=== PATIENT | female | born 1960 | race Hispanic/Latino ===

== ENCOUNTER 2019-08-01 11:45 | Emergency (ER) | payer OTHER, MEDICARE, MEDICAID ==
[~2019-08-01] VITALS: Ht 149.9 cm; Wt 78.0 kg
[~2019-08-01 11:45] MED LIST: ADVAIR DISK1 INH; ALBUTEROL S2.5 MG/.5 IN; AMOXICILLIN/PO500 MG PO; BACTRIM DS1 TAB OR; CEPHALEXIN500 M1 PO; DUONEB IN; FLU PO; IPRATROPIU0.5 MG/3 M IN; KEFLEX500 MG PO; MECLIZINE25 MG OR; MEDDOSEPAK PO; METHOCARBAMOL500 MG PO; NAPROSYN375 MG PO; NAPROXEN250 MG PO; NO MEDS; PAXIL30 MG PO; PERCOCET 10/31 COMBO PO; PROAIR HFA IN; PROVENTIL0.083 % IN; PROZAC10 MG PO; ROBITUSSIN COLD PO; ROBITUSSIN200 MG/10 PO; TRAZODONE50 MG PO; TYLENOL500 MG OR; ULTRAM50 MG OR; VENTOLIN HFA IN; ZITHROMAX250 MG PO; [UNRECOGNIZED DRUG - OTHER] OR
[2019-08-01] MEDS ORDERED: SYMBICORT1 AE1 IN (12:07)
[2019-08-01 13:25] VITALS: BP 149/74
== END 2019-08-01 13:25 | disposition home or self-care (01) | DRG 563 ==
LOC: ED 11:45
DX: S46.912A Strain of unspecified muscle, fascia and tendon at shoulder and upper arm level, left arm, initial encounter (principal); S76.912A Strain of unspecified muscles, fascia and tendons at thigh level, left thigh, initial encounter; S39.012A Strain of muscle, fascia and tendon of lower back, initial encounter; F17.210 Nicotine dependence, cigarettes, uncomplicated; V89.2XXA Person injured in unspecified motor-vehicle accident, traffic, initial encounter

== ENCOUNTER 2019-10-13 | Observation (INO) | payer MEDICARE ==
[~2019-10-13] MED LIST changes: +SYMBICORT1 AE1 IN
--- NOTE | 2019-10-13 17:30 | NUR ---
PT TO ROOM VIA WC
--- NOTE | 2019-10-13 17:46 | NUR ---
DR ANSARI TO ROOM FOR ASSESSMENT
--- NOTE | 2019-10-13 17:47 | NUR ---
PT TO ROOM VIA WC
--- NOTE | 2019-10-13 18:16 | NUR ---
PT RESTING QUIETLY ON STRETCHER; NO S/S OF DISTRESS NOTED; MONITORING DEVICES IN PLACE; PT DENIES ANY NEEDS AT THIS TIME; WILL CONTINUE TO MONITOR
[2019-10-13 18:48] LABS: HEMATOCRIT 35.4 % (37.0-47.0); HEMOGLOBIN 11.8 g/dl (12.0-16.0); MEAN CELL VOLUME 89.6 fL CALC (80.0-100.0); MEAN CORPUSCULAR HGB 29.9 pG CALC (26.0-32.0); MEAN CORPUSCULAR HGB CONC 33.3 g/L CALC (32.0-36.0); NEUT# 16.11 thou/uL (2.00-7.15); RED BLOOD COUNT 3.95 mill/uL (4.20-5.60); RED CELL DISTRI WIDTH 12.1 % (11.5-15.5)
--- NOTE | 2019-10-13 18:50 | NUR ---
REPORT GIVEN TO ANURADHA SINCLAIR
[2019-10-13 19:12] LABS: ALBUMIN 3.3 g/dL (3.2-5.0); ALKALINE PHOSPHATASE 110 u/l (38-126); BUN 8 mg/dL (7-17); BUN/CREATININE RATIO 20 (12-20 (CALC)); CARBON DIOXIDE 27 mmol/l (22-30); CHLORIDE 102 mmol/l (95-108); CREATININE 0.4 mg/dL (0.5-1.0); GFR > 60 ML/MIN (>=60 (CALC)); GFR FOR AFR.AMER. > 60 ML/MIN (>=60 (CALC)); LIPASE 35 u/l (23-300); SGOT/AST 16 u/l (14-36); SODIUM 138 mmol/l (137-146); TOTAL PROTEIN 6.4 g/dL (6.3-8.2)
[2019-10-13 19:14] LABS: ANION GAP 12 (6-22 (CALC)); BILIRUBIN, TOTAL 0.5 mg/dL (0.0-1.4); POTASSIUM 2.9 mmol/l (3.5-5.1)
[2019-10-13 19:33] LABS: URINE BLOOD DIPSTICK MODERATE (NEGATIVE); URINE GLUCOSE - DIPSTICK NEGATIVE (NEGATIVE); URINE KETONE NEGATIVE (NEGATIVE); URINE LEUK ESTERASE TRACE (NEGATIVE); URINE NITRITE - DIPSTICK NEGATIVE (Negative); URINE PROTEIN - DIPSTICK TRACE mg/dL (NEG-TRACE); URINE SPECIFIC GRAVITY 1.025
[2019-10-13 19:35] LABS: URINE BILIRUBIN - DIPSTICK NEGATIVE (NEGATIVE); URINE COLOR DK. YELLOW
[2019-10-13 19:42] LABS: URINE MUCUS MANY hpf (NONE-FEW); URINE SQUAMOUS EPITHELIAL CELL MODERATE EPI/hpf (0-FEW)
--- NOTE | 2019-10-13 20:05 | NUR ---
RETURNED FROM RADIOLOGY VIA STRETCHER. TO BEDSIDE.
--- NOTE | 2019-10-13 20:39 | NUR ---
UNABLE TO GET MEDS FROM [facility]. [facility] CALLED PUT ON HOLD. STATES ORDERS HAVE TO BE PUT IN AGAIN.
--- NOTE | 2019-10-13 21:14 | NUR ---
PT RESTING. NC APPLIED AT 2 LPM FOR SAT OF 92.
--- NOTE | 2019-10-13 21:45 | NUR ---
PT SLEEPING. VSS. NAD.
--- NOTE | 2019-10-13 23:43 | NUR ---
CALLED TO GIVE REPORT. WILL CALL BACK.
--- NOTE | 2019-10-14 00:30 | NUR ---
NURSE STILL UNABLE TO TAKE REPORT.
--- NOTE | 2019-10-14 00:41 | NUR ---
[facility] CALLED FOR REPORT.
--- NOTE | 2019-10-14 00:52 | NUR ---
TO BR TO VOID. THEN TO FLOOR VIA WHEELCHAIR WITH 02 @ 2LPM NC
--- NOTE | 2019-10-14 01:00 | NUR ---
PT ARRIVED TO MED SURG UNIT VIA WC ACCOMPANIED BY ED NURSE. PT SELF AMBULATED TO STANDING SCALE AND TO THE BED. MOTHER BABY RN'S X2 IN W/PT.
--- NOTE | 2019-10-14 01:20 | NUR ---
PT HAS BEEN ORIENTED TO ROOM, CALL SYSTEM, LIGHTS, BED AND TV. ASSESSMENT COMPLETED AT THIS TIME. PT REPORTS FEELING BETTER THAN WHEN SHE CAME IN. POC DISCUSSED W/PT AND PT HAS BEEN ASKED TO CALL IF SHE NEEDS TO AMBULATE. PT REPORTS HAVING SEVERAL FALLS IN LAST COUPLE OF MONTHS AND DIZZY SPELLS FOR TWO YEARS.
--- NOTE | 2019-10-14 01:40 | NUR ---
NEW IV SITE ACCESSED, PT TOLERATED WELL. IVF RUNNING TO NEW SITE IN LFA #22. BED LOWERED, LIGHTS LOWERED, PT DENIES ANY OTHER NEEDS.
[2019-10-14 03:35] VITALS: BP 112/72
--- NOTE | 2019-10-14 04:55 | NUR ---
PT SLEEPING AT THIS TIME. NO S/O DISTRESS NOTED. CALL LIGHT W/IN REACH.
[2019-10-14 05:08] LABS: HEMATOCRIT 36.8 % (37.0-47.0); HEMOGLOBIN 12.1 g/dl (12.0-16.0); MEAN CELL VOLUME 90.9 fL CALC (80.0-100.0); MEAN CORPUSCULAR HGB 29.9 pG CALC (26.0-32.0); MEAN CORPUSCULAR HGB CONC 32.9 g/L CALC (32.0-36.0); RED BLOOD COUNT 4.05 mill/uL (4.20-5.60); RED CELL DISTRI WIDTH 12.3 % (11.5-15.5)
[2019-10-14 05:48] LABS: ANION GAP 12 (6-22 (CALC)); BUN 9 mg/dL (7-17); BUN/CREATININE RATIO 27 (12-20 (CALC)); CARBON DIOXIDE 26 mmol/l (22-30); CHLORIDE 106 mmol/l (95-108); CREATININE 0.3 mg/dL (0.5-1.0); GFR > 60 ML/MIN (>=60 (CALC)); GFR FOR AFR.AMER. > 60 ML/MIN (>=60 (CALC)); MAGNESIUM 2.1 mg/dL (1.6-2.3); SODIUM 140 mmol/l (137-146)
[2019-10-14 05:58] LABS: POTASSIUM 3.7 mmol/l (3.5-5.1)
[2019-10-14 08:00] VITALS: BP 124/73
--- NOTE | 2019-10-14 08:00 | NUR ---
ASSESSMENT IS COMPLETED: IV SITE IS FREE FROM REDNESS OR EDEMA. HR IS REG,PULSES ARE STRONG X4, ABD IS SOFT WITH ACTIVE BS., BREATH SOUNDS ARE COARE THROUGH OUT, O2 @2 LITERS WITH NC. TELE MONITOR IN PLACE. CONTINUE TO OSBERVER AND MONITOR.
[2019-10-14 10:55] VITALS: BP 125/67
--- NOTE | 2019-10-14 12:05 | NUR ---
PT IS RELAXING ON THE SIDE OF THE BED, FAMILY IN THE ROOM. IV SITE IS FREE FROM REDNESS OR EDEMA.
[2019-10-14 15:12] VITALS: BP 147/81
--- NOTE | 2019-10-14 16:15 | NUR ---
PT IS RELAXING IN BED WITH NO DISTRESS NOTED. IV SITE IS FREE FROM REDNESS OR EDEMA. CONTINUE TO OBSERVE AND MONITOR
[2019-10-14 19:00] VITALS: BP 130/79
--- NOTE | 2019-10-14 19:10 | NUR ---
REPORT RECEIVED FROM DENY SHERIDAN. PT RESTING IN BED, FAMILY AT BEDSIDE. NO S/S OF DISTRESS AT THIS TIME. SAFETY PRECAUTIONS IN PLACE. WILL CONTINUE TO MONITOR.
--- NOTE | 2019-10-14 19:45 | NUR ---
PT RESTING IN BED, ALERT AND ORIENTED, FAMUILY AT BEDSIDE. RESPIRATIONS EVEN AND UNLABORED ON O2 @ 2L. LUNGS SOUND COARSE. PEDAL PULSES STRONG. PT DENIES ANY PAIN OR DISCOMFORT AT THIS TIME. #20 LFA APPEARS HEALTHY AND PATENT. TELE IN PLACE. CALL LAW WITHIN REACH. WILL CONTINUE TO MONITOR.
[2019-10-15] VITALS: BP 136/83
--- NOTE | 2019-10-15 00:05 | NUR ---
PT RESTING IN BED WITH EYES CLOSED. TELE IN PLACE. NO S/S OF DISTRESS AT THIS TIME. CALL LAW WITHIN REACH. WILL CONTINUE TO MONITOR.
--- NOTE | 2019-10-15 04:34 | NUR ---
PT RESTING IN BED. NO S/S OF DISTRESS AT THIS TIME. SAFETY PRECAUTIONS IN PLACE. WILL CONTINUE TO MONITOR.
[2019-10-15 04:44] VITALS: BP 109/65
[2019-10-15 05:16] LABS: HEMATOCRIT 31.4 % (37.0-47.0); HEMOGLOBIN 10.3 g/dl (12.0-16.0); MEAN CELL VOLUME 91.3 fL CALC (80.0-100.0); MEAN CORPUSCULAR HGB 29.9 pG CALC (26.0-32.0); MEAN CORPUSCULAR HGB CONC 32.8 g/L CALC (32.0-36.0); RED BLOOD COUNT 3.44 mill/uL (4.20-5.60); RED CELL DISTRI WIDTH 12.2 % (11.5-15.5)
[2019-10-15 05:31] LABS: ANION GAP 12 (6-22 (CALC)); BUN 7 mg/dL (7-17); BUN/CREATININE RATIO 22 (12-20 (CALC)); CARBON DIOXIDE 25 mmol/l (22-30); CHLORIDE 107 mmol/l (95-108); CREATININE 0.3 mg/dL (0.5-1.0); GFR > 60 ML/MIN (>=60 (CALC)); GFR FOR AFR.AMER. > 60 ML/MIN (>=60 (CALC)); MAGNESIUM 2.2 mg/dL (1.6-2.3); POTASSIUM 3.6 mmol/l (3.5-5.1); SODIUM 140 mmol/l (137-146)
[2019-10-15 08:00] VITALS: BP 131/79
--- NOTE | 2019-10-15 08:00 | NUR ---
Pateint was awake and assessment completed. The patient was upset due to alarms going off with car shifter. She also did not feel that she was getting all of her neb treatments. We informed her that she did in fact receive the complete medication ordered. the bed is in the lowest position, all needs met. call light within reach.
[2019-10-15 10:56] VITALS: BP 127/68
--- NOTE | 2019-10-15 11:00 | NUR ---
PATIENT RECEIVED BOTH FLU AND PNEUMONIA VACCINES. WAS ASSISTED INTO THE SHOWER.
--- NOTE | 2019-10-15 14:00 | NUR ---
Patient refused to stay and stated that she is leaving (going home). Patient was educated about leaving AMA and asked to please reconsider. Patient stated that she had to go and take care of her granddaughter. Removed IV, signed AMA, as patient had belongings packed and ready to go. DORMITORY MAID assited patient to car via WC.
--- NOTE | 2019-10-15 14:30 | NUR ---
AMA SIGNED BY PT AMBUALTED OFF THE UNIT . EXPLAINED A WC WAS ON THE WAY.INFORMED DANDRE COBB THAT PT IS LEAVING AMA. VERBALIZED UNDERSTANDING,
--- NOTE | 2019-10-15 15:22 | NUR ---
Discharge instructions given. Patient verbalizes understanding of same. Discharged in stable condition via Ambulatory to Home with family. All belongings sent with pt.
== END 2019-10-15 14:27 | disposition left against medical advice (07) ==
PROVIDERS: Family Medicine; ADMIT Internal Medicine
PROC: 3E02340 Introduction of Influenza Vaccine into Muscle, Percutaneous Approach (ICD-10-PCS; principal; 2019-10-15)
PROC: 3E0234Z Introduction of Serum, Toxoid and Vaccine into Muscle, Percutaneous Approach (ICD-10-PCS; 2019-10-15)
DX: J18.9 Pneumonia, unspecified organism (principal); J43.9 Emphysema, unspecified; J45.901 Unspecified asthma with (acute) exacerbation; F17.200 Nicotine dependence, unspecified, uncomplicated; Z63.4 Disappearance and death of family member; Z23 Encounter for immunization; R06.02 Shortness of breath
CPT/HCPCS: G0378; Q9967

== ENCOUNTER 2023-01-23 10:20 | Emergency (ER) | payer MEDICARE, MEDICAID ==
[~2023-01-23] VITALS: Ht 149.9 cm; Wt 180.0 kg
[2023-01-23 10:49] VITALS: BP 133/71
[2023-01-23 11:02] VITALS: BP 136/63
[2023-01-23 11:03] LABS: BASO% 0.1 % (0-3); EOS% 0.5 % (0-8); IMMATURE GRANULOCYTES 0.5 % (0.0-5.0); LYMPH% 5.9 % (15-41); MEAN CELL VOLUME 89.8 fL CALC (80.0-100.0); MEAN CORPUSCULAR HGB 29.1 pG CALC (26.0-32.0); MEAN CORPUSCULAR HGB CONC 32.4 g/dL CAL (32.0-36.0); MONO% 4.8 % (2-13); NEUT# 18.34 thou/uL (2.00-7.15); NEUT% 88.2 % (42-76); RED BLOOD COUNT 4.33 mill/uL (4.20-5.60); RED CELL DISTRI WIDTH 12.8 % (11.5-15.5)
[2023-01-23 11:08] LABS: HEMATOCRIT 38.9 % (37.0-47.0); HEMOGLOBIN 12.6 g/dl (12.0-16.0)
[2023-01-23 11:19] LABS: ALBUMIN 3.8 g/dL (3.2-5.0); ALKALINE PHOSPHATASE 108 u/l (38-126); ANION GAP 10 (6-22 (CALC)); BILIRUBIN, TOTAL 1.1 mg/dL (0.02-1.3); BUN 13 mg/dL (8-23); BUN/CREATININE RATIO 17 (12-20 (CALC)); CARBON DIOXIDE 29 mmol/l (22-30); CHLORIDE 102 mmol/l (95-108); CREATININE 0.8 mg/dL (0.5-1.0); GFR FOR AFR.AMER. > 60 ML/MIN (>=60 (CALC)); GFR OTHER RACES > 60 ML/MIN (>=60 (CALC)); POTASSIUM 3.5 mmol/l (3.5-5.1); SGOT/AST 22 u/l (9-36); SODIUM 138 mmol/l (137-146); TOTAL PROTEIN 6.7 g/dL (6.3-8.2)
[2023-01-23] MEDS ORDERED: BACTRIM DS1 TAB PO (12:14)
[2023-01-23] MEDS ORDERED: OMNI-PAC300 MG PO (12:14)
[2023-01-23 14:58] VITALS: BP 171/100
[2023-01-23 15:00] VITALS: BP 159/98
[2023-01-23 15:30] VITALS: BP 169/100
== END 2023-01-23 12:10 | disposition left against medical advice (07) ==
LOC: ED 10:20
PROVIDERS: Family Medicine
DX: L03.116 Cellulitis of left lower limb (principal); I10 Essential (primary) hypertension; J45.909 Unspecified asthma, uncomplicated; F41.9 Anxiety disorder, unspecified; F32.A Depression, unspecified; F17.210 Nicotine dependence, cigarettes, uncomplicated; Z53.29 Procedure and treatment not carried out because of patient's decision for other reasons

== ENCOUNTER 2023-02-01 17:15 | Inpatient (IN) | payer MEDICARE, MEDICAID ==
[~2023-02-01] VITALS: Ht 149.9 cm; Wt 91.8 kg
[2023-02-01] VITALS (7 sets, daily range): BP systolic 141–179; BP diastolic 62–98
[~2023-02-01 17:15] MED LIST changes: +BACTRIM DS1 TAB PO; +OMNI-PAC300 MG PO
--- NOTE | 2023-02-01 18:26 | NUR ---
pt states pain to left lower leg, pt states she was seen here and was given antibiotics. pt states she has taken some of them. pt states she never made a follow up appointment because she was "here on a weekend". pt states that she has not been taking her other prescribed medications, pt states it has been months. pts left lower leg is red, swollen, weeping, multiple wounds.
[2023-02-01 18:32] LABS: BASO% 0.4 % (0-3); EOS% 4.3 % (0-8); HEMATOCRIT 33.8 % (37.0-47.0); HEMOGLOBIN 10.3 g/dl (12.0-16.0); IMMATURE GRANULOCYTES 0.4 % (0.0-5.0); LYMPH% 23.6 % (15-41); MEAN CELL VOLUME 93.4 fL CALC (80.0-100.0); MEAN CORPUSCULAR HGB 28.5 pG CALC (26.0-32.0); MEAN CORPUSCULAR HGB CONC 30.5 g/dL CAL (32.0-36.0); MONO% 9.9 % (2-13); NEUT# 5.05 thou/uL (2.00-7.15); NEUT% 61.4 % (42-76); RED BLOOD COUNT 3.62 mill/uL (4.20-5.60); RED CELL DISTRI WIDTH 12.9 % (11.5-15.5)
[2023-02-01 18:44] LABS: ALBUMIN 3.4 g/dL (3.2-5.0); CREATININE 1.4 mg/dL (0.5-1.0); POTASSIUM 4.9 mmol/l (3.5-5.1); TOTAL PROTEIN 7.3 g/dL (6.3-8.2)
[2023-02-01] MEDS ORDERED: LISINOP/HCTZ1 TA2 PO (20:07)
--- NOTE | 2023-02-01 20:24 | NUR ---
REPORT CALLED TRIED TO CALL MS - WAITING FOR CALL BACK
--- NOTE | 2023-02-01 21:02 | NUR ---
MS CALLED BACK AND REPORT WAS GIVEN TO RACHEL DINERO RN, PT VSS UPON TX AND NAD. SENDING DOSE OF ZOCYN THAT IS DUE NOW WITH PATIENT.
--- NOTE | 2023-02-01 21:13 | NUR ---
PT TX TO ROOM 270 BY RN, VSS, NAD. PATIENT BELONGINGS WITH PT AND MED REC COMPLETED.
[2023-02-02] VITALS (7 sets, daily range): BP systolic 139–166; BP diastolic 61–85
--- NOTE | 2023-02-02 | NUR ---
RECEIVED REPORT FROM ED NURSE CASSIDY, PATIENT ARRIVED TO FLOOR AT 2111, TRANSPORTED BY BED, PATIENT APPEARS SLEEPY, AUDIBLE WHEEZING NOTED, PATIENT SALINE LOCK NOTED ON LAC G 20 PATENT FLUSHES WELL, NOTED EDEMA ON LEFT LEG WEEPING, ELEVATED WITH PILLOW, PATIENT ORINETD TO ROOM AND CALL LIGHT SYSTEM. RESPIRATORY CALLED FOR BREATHING TREATMENT.CALL LIGHT IN REACH.
--- NOTE | 2023-02-02 05:16 | NUR ---
PATIENT RESTING IN BED WITH EYES CLOSED, NO DISCOMFORTS NOTED AT THIS TIME, CALL LIGHT IN REACH.
[2023-02-02 05:20] LABS: BASO% 0.3 % (0-3); EOS% 3.6 % (0-8); HEMATOCRIT 29.6 % (37.0-47.0); HEMOGLOBIN 9.2 g/dl (12.0-16.0); IMMATURE GRANULOCYTES 0.5 % (0.0-5.0); LYMPH% 22.5 % (15-41); MEAN CELL VOLUME 92.8 fL CALC (80.0-100.0); MEAN CORPUSCULAR HGB 28.8 pG CALC (26.0-32.0); MEAN CORPUSCULAR HGB CONC 31.1 g/dL CAL (32.0-36.0); MONO% 8.7 % (2-13); NEUT# 5.58 thou/uL (2.00-7.15); NEUT% 64.4 % (42-76); RED BLOOD COUNT 3.19 mill/uL (4.20-5.60); RED CELL DISTRI WIDTH 13.1 % (11.5-15.5)
[2023-02-02 05:33] LABS: ALBUMIN 2.8 g/dL (3.2-5.0); CREATININE 1.2 mg/dL (0.5-1.0); MAGNESIUM 2.2 mg/dL (1.6-2.3); TOTAL PROTEIN 6.2 g/dL (6.3-8.2)
[2023-02-02 05:39] LABS: BILIRUBIN, TOTAL 0.1 mg/dL (0.02-1.3); POTASSIUM 5.2 mmol/l (3.5-5.1)
--- NOTE | 2023-02-02 08:00 | NUR ---
PT RESTING IN BED, REPOSITIONED. ASSESSMENT COMPLETED. EDUCATED PT IN PLAN OF CARE. PT INDICATED UNDERSTANDING. FALL/SAFTEY PRECAUITON IN PLACE. CALL LIGHT WITHIN REACH.
--- NOTE | 2023-02-02 09:35 | NUR ---
S: FREDY GARCIA is a 62 F who presents with cellulitis. All medications in patient's chart were reviewed. O: VS: BP 139/72 , P 62, RR 19,T 97.7 F W 91.8kg, 150cm, Scr=1.2, CrCl= 65ml/min A: Blood culture is pending. P: Patient is on Zosyn 3.375gm Q6H. Vancomycin ordered for pharmacy to dose. Start Vancomycin 1gm IV Q12H. Vancomycin trough is drawn before the 4th dose at 21:00 on 02/03/2023 . Vancomycin goal trough is between 15-20 mcg/ml. Pharmacy will follow and or advise on antibiotics use as needed.
--- NOTE | 2023-02-02 12:56 | NUR ---
PT RESTING IN BED. STATES PAIN MEDICATION HAS SUBSIDED PAIN IN LEG. STATES NO OTHER NEEDS AT THSI TIME. FALL/SAFTEY PRECAUTION IN PLACE. CALL LIGHT WITHIN REACH
--- NOTE | 2023-02-02 14:42 | NUR ---
NEW IV ESTABLISHED 20G RAC PT TOLERATED WELL. FALL/SAFTEY PRECAUTION IN PLACE, CALL LIGHT WITHIN REACH
--- NOTE | 2023-02-02 16:00 | NUR ---
PT RESTING IN BED. NO DISTRESS NOTED. FALL/SAFTEY PRECAUTIO IN PLACE. CALL LIGHT WITHIN REACH
--- NOTE | 2023-02-02 19:50 | NUR ---
B[facility] REPORT RECEIVED FROM OFFGOING NURSE. DENIES PAIN OR DISCOMFORT AT THIS TIME. RESTING IN BED WITH PERSONAL ITEMS AND CALL LIGHT WITHIN REACH.
--- NOTE | 2023-02-03 00:40 | NUR ---
PATIENT HAVING AUDIBLE WHEEZING AND SHALLOW BREATHING. RT NOTIFIED AND PATIENT CURRENTLY RECEIVING BREATHING TREATMENT. PATIENT AWAKE AND ALERT. DENIES PAIN. CALL LIGHT WITHIN REACH.
[2023-02-03 04:07] VITALS: BP 159/79
[2023-02-03 05:43] LABS: BASO% 0.3 % (0-3); EOS% 3.1 % (0-8); HEMATOCRIT 32.8 % (37.0-47.0); IMMATURE GRANULOCYTES 0.3 % (0.0-5.0); LYMPH% 19.4 % (15-41); MEAN CELL VOLUME 94.8 fL CALC (80.0-100.0); MEAN CORPUSCULAR HGB 28.9 pG CALC (26.0-32.0); MEAN CORPUSCULAR HGB CONC 30.5 g/dL CAL (32.0-36.0); MONO% 8.6 % (2-13); NEUT# 6.75 thou/uL (2.00-7.15); NEUT% 68.3 % (42-76); RED BLOOD COUNT 3.46 mill/uL (4.20-5.60); RED CELL DISTRI WIDTH 13.1 % (11.5-15.5)
[2023-02-03 05:56] LABS: CREATININE 1.3 mg/dL (0.5-1.0); MAGNESIUM 2.4 mg/dL (1.6-2.3); TOTAL PROTEIN 7.3 g/dL (6.3-8.2)
[2023-02-03 05:58] LABS: ALBUMIN 3.4 g/dL (3.2-5.0); BILIRUBIN, TOTAL 0.2 mg/dL (0.02-1.3)
[2023-02-03 06:25] VITALS: BP 165/92
--- NOTE | 2023-02-03 08:00 | NUR ---
PT ALERT AND ORIENTED.ABLE TO MAKE NEEDS KNOWN.NO C/O PAIN AT THIS TIME.20G LAC RUNNING NS @ 50ML/HR.VACOMYCIN ANTIBIOTIC MEDICATION INFUSING IN IV LINE.LEFT EXTREMITY RED,WARM,SHINY AND SLIGHTLY WEEPING.LEFT LEG RESTING ON CHUX. NO S/S OF DISTRESS PT CURRENTLY RESTING IN BED TALKING ON THE PHONE.SAFETY PRECAUTIONS IN PLACE.CALL LIGHT WITHIN REACH.
--- NOTE | 2023-02-03 12:17 | NUR ---
PT RESTING BED.NO C/O PAIN AT THE MOMENT.NO S/S DISTRESS.RESPIRATIONS EVEN,UNLABORED.SAFETY PRECAUTIONS IN PLACE.CALL LIGHT WITHIN REACH.
[2023-02-03 14:50] VITALS: BP 155/80
--- NOTE | 2023-02-03 16:00 | NUR ---
PT RESTING BED.ABLE TO MAKE NEEDS KNOWN.MEDICATED FOR PAIN WITH EFFECTIVE RESULTS.SAFETY PRECAUTIONS IN PLACE.CALL LIGHT WITHIN REACH.
[2023-02-03 19:00] VITALS: BP 145/77
--- NOTE | 2023-02-03 19:10 | NUR ---
SBAR RECEIVED FROM ANURADHA HAUSER. PATIENT SITTING UP IN BED EATING DINNER, TOLERATING WELL. NO CONCERNS EXPRESSED AT THIS TIME. CALL LIGHT WITHIN REACH.
--- NOTE | 2023-02-03 19:51 | NUR ---
PATIENT ALERT AND ORIENTED X3. ASSESSMENT COMPLETE. PATIENT RESTING QUIETLY IN BED. LEFT FOOT CELLULITIS NOTED. SITE WARM TO TOUCH SHINY. WOUND NOTED TO LEFT LATERAL SCHREIBER WITH WEEPING. PULSE WEAK, 2+ EDEMA. PATIENT REPOSITIONED; DENIES PAIN AT THIS TIME. CALL LIGHT WITHIN REACH.
[2023-02-04 04:15] VITALS: BP 162/93
--- NOTE | 2023-02-04 04:35 | NUR ---
PATIENT RESTING IN BED, HIGH HANSON'S POSITION TO ACCOMODATE BREATHING. SATURATION 98% RA, NO DISTRESS NOTED AT THIS TIME, DENIES PAIN. CALL LIGHT WITHIN REACH.
[2023-02-04 05:39] LABS: BASO% 0.3 % (0-3); EOS% 4.2 % (0-8); HEMATOCRIT 31.2 % (37.0-47.0); HEMOGLOBIN 9.3 g/dl (12.0-16.0); IMMATURE GRANULOCYTES 0.3 % (0.0-5.0); LYMPH% 23.6 % (15-41); MEAN CELL VOLUME 94.5 fL CALC (80.0-100.0); MEAN CORPUSCULAR HGB 28.2 pG CALC (26.0-32.0); MEAN CORPUSCULAR HGB CONC 29.8 g/dL CAL (32.0-36.0); MONO% 10.1 % (2-13); NEUT# 5.85 thou/uL (2.00-7.15); NEUT% 61.5 % (42-76); RED BLOOD COUNT 3.3 mill/uL (4.20-5.60)
[2023-02-04 05:52] LABS: ALBUMIN 3.2 g/dL (3.2-5.0); ALKALINE PHOSPHATASE 99 u/l (38-126); BUN 24 mg/dL (8-23); BUN/CREATININE RATIO 23 (12-20 (CALC)); CARBON DIOXIDE 23 mmol/l (22-30); CHLORIDE 116 mmol/l (95-108); GFR FOR AFR.AMER. > 60 ML/MIN (>=60 (CALC)); GFR OTHER RACES 56 ML/MIN (>=60 (CALC)); MAGNESIUM 2.3 mg/dL (1.6-2.3); SGOT/AST 23 u/l (9-36); SODIUM 144 mmol/l (137-146); TOTAL PROTEIN 7.1 g/dL (6.3-8.2)
[2023-02-04 05:56] LABS: ANION GAP 10 (6-22 (CALC)); BILIRUBIN, TOTAL 0.3 mg/dL (0.02-1.3)
[2023-02-04 05:57] LABS: POTASSIUM 5.3 mmol/l (3.5-5.1)
[2023-02-04 06:54] VITALS: BP 179/102
[2023-02-04 06:56] VITALS: BP 182/97
--- NOTE | 2023-02-04 08:07 | NUR ---
SHIFT CHANGE REPORT, PT SLEEPING IN SUPINE POSITION, BREATHING EVEN AND NON-LABORED, AWAKEN TO VERBAL SITMULI, ORIENTED, C/O DISCOMFORT TO LEFT LEG WHICH IS RED WARM AND SWOLEN AT THIS TIME AND ELEVATED ON PILLOW. CALL LAW IN REACH AND BED LOCKED IN LOWEST POSITION.
[2023-02-04 08:52] VITALS: BP 166/89
[2023-02-04 08:55] VITALS: BP 166/89
--- NOTE | 2023-02-04 09:16 | NUR ---
ASSISTED TO [facility] AT THIS TIME, BECAME WINDED, WHEEZY AND SOB, RESPIRATORY NOTIFIED AND IS HERE NOW TO GIVE TREATMENT.
[2023-02-04] MEDS ORDERED: VIBRAMYCIN100 M2 PO (11:06)
[2023-02-04] MEDS ORDERED: AMOX/K CLAV875 M1 PO (11:06)
[2023-02-04] MEDS ORDERED: LORTAB5 PO (11:08)
--- NOTE | 2023-02-04 11:14 | NUR ---
PT C/O SHE IS HAVING DIFFICULTY BREATHILNG HERE AND WANTS TO GO HOME, EVALUATED AND DISCUSSED PLAN OF CARE, WILL CONTINUE TO MONITOR.
--- NOTE | 2023-02-04 15:42 | NUR ---
Discharge instructions given. Patient verbalizes understanding of same. Discharged in stable condition via Wheelchair to Home with family. All belongings sent with pt.
== END 2023-02-04 15:38 | disposition home or self-care (01) | DRG 603 ==
LOC: ED 17:15 → MS2 19:50
PROVIDERS: Family Medicine; Nurse Practitioner Family; ADMIT Internal Medicine; ATTEND Internal Medicine
DX: L03.116 Cellulitis of left lower limb (principal); I10 Essential (primary) hypertension; J41.0 Simple chronic bronchitis; F41.9 Anxiety disorder, unspecified; F32.A Depression, unspecified; F17.210 Nicotine dependence, cigarettes, uncomplicated; B95.7 Other staphylococcus as the cause of diseases classified elsewhere
CPT/HCPCS: J0692; Q9967